=== PATIENT | male | born 1965 | race Caucasian/White ===

== ENCOUNTER 2020-12-03 18:13 | Emergency (ER) | payer OTHER, SELFPAY ==
[~2020-12-03] VITALS: Ht 172.7 cm; Wt 97.7 kg
[2020-12-03] MEDS ORDERED: SYNT137T7 PO (19:11)
[2020-12-03] MEDS ORDERED: ATEN25TA PO (19:22)
--- NOTE | 2020-12-03 19:25 | REP ---
INDICATION: syncope. COMPARISON: No comparison chest x-ray. TECHNIQUE: Two views.. FINDINGS: The lungs are well inflated and free of infiltrate. The pleural angles are sharp. The heart size is normal. Pulmonary vasculature is not increased. No significant bony abnormality is seen. EKG monitoring electrodes are seen. IMPRESSION: Negative chest x-ray. <Electronically signed by Fabrizio Sanchez > 12/03/201921
[2020-12-03] MEDS ORDERED: LR 1,000 ML IV ONE ×2 (19:30→20:40)
[2020-12-03 19:42] LABS: BASO % 0.3 % (0.0-1.0); EOS # 0.1 10^3/uL (0.0-0.5); EOS % 2.2 % (0.0-3.0); HEMATOCRIT 38.8 % (42.0-52.0); HEMOGLOBIN 13.8 g/dl (13.5-17.5); LYMPH # 1.4 10^3/uL (1.5-5.0); LYMPH % 22.8 % (24.0-44.0); MEAN CORPUSCULAR HEMOGLOBIN 32.1 pg (27.0-33.0); MEAN CORPUSCULAR HGB CONC 35.6 g/dl (32.0-36.5); MEAN CORPUSCULAR VOLUME 90.2 fl (80.0-96.0); MONO # 0.6 10^3/uL (0.0-0.8); MONO % 9.4 % (2.0-8.0); NEUTROPHILS # 4.1 10^3/uL (1.5-8.5); NEUTROPHILS % 65.1 % (36.0-66.0); PLATELET COUNT, AUTOMATED 218 10^3/uL (150-450); WHITE BLOOD COUNT 6.3 10^3/uL (4.0-10.0)
[2020-12-03 20:22] LABS: BLOOD UREA NITROGEN 20 MG/DL (7-18); CALCIUM LEVEL 8.6 MG/DL (8.5-10.1); CARBON DIOXIDE LEVEL 26 MEQ/L (21-32); CHLORIDE LEVEL 106 MEQ/L (98-107); CK-MB VALUE MASS < 1.0 NG/ML (<3.6); CPK CREATINE PHOSPHOKINASE 75 U/L (39-308); CREATININE FOR GFR 1.08 MG/DL (0.70-1.30); FREE T4 1.17 NG/DL (0.76-1.46); GLOMERULAR FILTRATION RATE > 60.0 (>56); GLUCOSE, FASTING 103 MG/DL (70-100); MB/CK RELATIVE INDEX 1.33 (< OR =4); POTASSIUM SERUM 3.7 MEQ/L (3.5-5.1); SODIUM LEVEL 139 MEQ/L (136-145); TROPONIN I < 0.02 NG/ML (< 0.10)
--- NOTE | 2020-12-03 20:43 | ECGEPIP ---
[facility] - ED Test Date: 2020-12-03 Pat Name: GOLDIE ELIZABETH Department: Room: - Gender: Male Architectural Technician: : [id number] Requested By: Ld Alves Order Number: [id number] Reading MD: Sunshine Nance Measurements Intervals [place] Rate: 85 P: 29 CT: 162 QRS: 4 QRSD: 82 T: 18 QT: 366 QTc: 435 Interpretive Statements Normal sinus rhythm No prior Electronically Signed on 12-03-2020 20:43:33 EDT by Sunshine Nance
--- NOTE | 2020-12-03 21:51 | REPVR ---
PROCEDURE INFORMATION: Exam: CT Head Without Contrast Exam date and time: 12/03/2020 8:56 PM Age: 55 years old Clinical indication: Syncope and collapse TECHNIQUE: Imaging protocol: Computed tomography of the head without contrast. Radiation optimization: All CT scans at this facility use at least one of these dose optimization techniques: automated exposure control; mA and/or kV adjustment per patient size (includes targeted exams where dose is matched to clinical indication); or iterative reconstruction. COMPARISON: No relevant prior studies available. FINDINGS: Brain: There is no acute cortical infarction, intracranial hemorrhage or mass. Cerebral ventricles: No ventriculomegaly. Bones/joints: Unremarkable. No acute fracture. Paranasal sinuses: There is no significant mucoperiosteal thickening or air-fluid levels in the visualized portion of the paranasal sinuses. Mastoid air cells: The middle ear cavities and mastoid air cells are clear. Vasculature: Atherosclerosis. Soft tissues: Unremarkable. IMPRESSION: No acute intracranial findings. Electronically signed by: Noa Castellanos On 12/03/2020 21:51:09 PM
[2020-12-03 22:15] VITALS: BP 128/85
== END 2020-12-03 22:31 | disposition home or self-care (01) ==
LOC: EDBD 18:13 → M ED 18:13
DX: F10.120 Alcohol abuse with intoxication, uncomplicated (principal); R55 Syncope and collapse; E86.0 Dehydration